=== PATIENT | male | born 1985 | race Caucasian/White ===

== ENCOUNTER 2018-07-31 09:25 | Emergency (ER) | payer BC ==
[2018-07-31 09:34] VITALS: RESP 18
[2018-07-31] MEDS ORDERED: ACETAMINOPHEN TAB 500 MG TAB PO STA (10:12)
--- NOTE | 2018-07-31 11:00 | US ---
EXAMINATION TYPE: US venous doppler duplex LE LT DATE OF EXAM: 07/31/2018 10:12 AM COMPARISON: NONE CLINICAL HISTORY: Pain. Left knee pain x couple days SIDE PERFORMED: Left TECHNIQUE: The lower extremity deep venous system is examined utilizing real time linear array sonog britany with graded compression, doppler sonography and color-flow sonography. VESSELS IMAGED: External Iliac Vein (EIV) Common Femoral Vein Deep Femoral Vein Greater Saphenous Vein * Femoral Vein Popliteal Vein Small Saphenous Vein * Proximal Calf Veins (* superficial vessels) Left Leg: Appears negative for DVT No popliteal fossa lesion is seen. IMPRESSION: THIS EXAMINATION IS NEGATIVE FOR DVT WITHIN THE LEFT LEG.
--- NOTE | 2018-07-31 11:49 | ED ---
General Adult HPI - General Chief complaint: Extremity Problem,Nontraumatic Stated complaint: Leg pain Time Seen by Provider: 07/31/18 09:52 Source: patient, RN notes reviewed Mode of arrival: ambulatory Limitations: no limitations - History of Present Illness Initial comments: 33-year-old male presents to the emergency department for a chief complaint of posterior left knee pain times one week. Patient states it is somewhat painful to walk. Patient denies any anterior knee pain. 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 Patient denies fevers or chills. Patient denies any swelling of the knee. Patient states there is a bruise behind the left knee with a small "lump." Patient was seen in urgent care and they sent him here for ultrasound of the lower extremity. Patient has no other complaints at this time including shortness of breath, chest pain, abdominal pain, nausea or vomiting, headache, or visual changes. - Related Data Home Medications Medication Instructions Recorded Confirmed Aspirin/Sod Bicarb/Citric Acid 1 tab PO Q6H PRN 07/31/18 07/31/18 [Michaela-[place] Original Tab Eff] Guaifen/Phenyleph/Acetaminophn 1 tab PO BID PRN 07/31/18 07/31/18 [Tylenol Sinus Severe Caplet] Ibuprofen [Motrin Ib] 200 mg PO Q6HR PRN 07/31/18 07/31/18 Allergies Allergy/AdvReac Type Severity Reaction Status Date / Time No Known Allergies Allergy Verified 07/31/18 10:21 Review of Systems ROS Statement: Those systems with pertinent positive or pertinent negative responses have been documented in the HPI. ROS Other: All systems not noted in ROS Statement are negative. Past Medical History Past Medical History: Hypertension History of Any Multi-Drug Resistant Organisms: None Reported Past Surgical History: Hernia Repair Past Psychological History: No Psychological Hx Reported Smoking Status: Current every day smoker Past Alcohol Use History: Occasional Past Drug Use History: Marijuana General Exam Limitations: no limitations General appearance: alert, in no apparent distress Head exam: Present: atraumatic, normocephalic, normal inspection Eye exam: Present: normal appearance, PERRL, EOMI. Absent: scleral icterus, conjunctival injection, periorbital swelling ENT exam: Present: normal exam, mucous membranes moist Neck exam: Present: normal inspection, full ROM. Absent: tenderness, meningismus, lymphadenopathy Respiratory exam: Present: normal lung sounds bilaterally. Absent: respiratory distress, wheezes, rales, rhonchi, stridor Cardiovascular Exam: Present: regular rate, normal rhythm, normal heart sounds. Absent: systolic murmur, diastolic murmur, rubs, gallop, clicks Extremities exam: Present: full ROM (Full range motion of the left knee and ankle), tenderness (Tenderness posterior to the left knee were patient has small 1 cm well-circumscribed induration noted), normal capillary refill (Capillary refill less than 2 seconds and DP pulse 2+ in the left lower extremity), other (Patient is a 1 cm area of well-circumscribed induration noted to the posterior left knee with small 2 cm x 2 cm area of bruising overlying this). Absent: joint swelling (No erythema or edema noted to the left knee), calf tenderness (No tenderness noted to the left calf, negative Homans sign) Neurological exam: Present: alert, oriented X3, CN II-XII intact Psychiatric exam: Present: normal affect, normal mood Course Vital Signs 07/31/18 07/31/18 09:32 12:28 Temperature 98.4 F 98.7 F Pulse Rate 74 60 Respiratory 18 18 Rate Blood Pressure 144/80 117/80 O2 Sat by Pulse 99 97 Oximetry Medical Decision Making - Medical Decision Making 33-year-old male presents to the emergency department for a chief complaint of left posterior knee pain. There is a 1 cm area of well-circumscribed induration noted with small 2 cm x 2 cm area of bruising. Full range motion of the left knee, no erythema or edema. She has pain with walking. Neurovascular intact in the left lower extremity. Ultrasound negative for DVT or other abnormality. Patient does not feel that he can work with the left knee as he does maintenance is painful to walk. Therefore he will follow up with orthopedics before returning to work as he does not have a primary care provider. Patient will be given crutches. Patient will return here if he has any worsening symptoms. Disposition Clinical Impression: Knee pain, left Disposition: HOME SELF-CARE Condition: Good Instructions (If sedation given, give patient instructions): Knee Pain (ED) Additional Instructions: Please ice the area. Please take Motrin and Tylenol for pain. Please follow-up with primary care and orthopedics in 1-2 days. Use crutches. Please return here to the emergency department if you have any worsening symptoms. Is patient prescribed a controlled substance at d/c from ED?: No Referrals: Miguel Zamarripa DO [Medical Doctor] - 1-2 days Lidia Arango MD [STAFF PHYSICIAN] - 1-2 days Time of Disposition: 11:46
[2018-07-31 12:30] VITALS: BP 117/80; PULSE 60; TEMP 98.7
== END 2018-07-31 12:30 | disposition home or self-care (01) ==
LOC: EC 09:25
DX: S80.02XA Contusion of left knee, initial encounter (principal); F17.200 Nicotine dependence, unspecified, uncomplicated; X58.XXXA Exposure to other specified factors, initial encounter
CPT/HCPCS: 99283

== ENCOUNTER 2019-06-23 00:16 | Emergency (ER) | payer BC ==
--- NOTE | 2019-06-23 01:03 | XR ---
EXAMINATION TYPE: XR knee complete RT DATE OF EXAM: 06/23/2019 COMPARISON: NONE HISTORY: Knee pain TECHNIQUE: 3 views FINDINGS: I see no fracture nor dislocation. Joint spaces are normal. There is no sign of joint effus ion. IMPRESSION: Negative right knee exam.
--- NOTE | 2019-06-23 01:19 | ED ---
Lower Extremity Injury HPI - General Chief Complaint: Extremity Injury, Lower Stated Complaint: Rt Knee Pain Time Seen by Provider: 06/23/19 00:22 Source: patient Mode of arrival: ambulatory Limitations: no limitations - History of Present Illness Initial Comments: Patient is a 33-year-old male presenting to emergency Department with complaints of right knee pain that happened a few hours prior to arrival. Patient states he was sleeping and bed when he rolled over and had pain in his right knee. Patient states he did get up and walk around and felt pain with ambulation. Patient states he did drive to work as he works nights but when he got out of his truck to stepdown he cannot put any weight on it. Patient denies any previous injuries, falls, surgeries to the right knee. He denies recent travel, history of blood clots. He has no other complaints at this time. Upon arrival to the ER his vitals are stable. Patient is requesting a work note. - Related Data Home Medications Medication Instructions Recorded Confirmed Aspirin/Sod Bicarb/Citric Acid 1 tab PO Q6H PRN 07/31/18 07/31/18 [Michaela-[place] Original Tab Eff] Guaifen/Phenyleph/Acetaminophn 1 tab PO BID PRN 07/31/18 07/31/18 [Tylenol Sinus Severe Caplet] Ibuprofen [Motrin Ib] 200 mg PO Q6HR PRN 07/31/18 07/31/18 Allergies Allergy/AdvReac Type Severity Reaction Status Date / Time No Known Allergies Allergy Verified 06/23/19 00:21 Review of Systems ROS Statement: Those systems with pertinent positive or pertinent negative responses have been documented in the HPI. ROS Other: All systems not noted in ROS Statement are negative. Past Medical History Past Medical History: Hypertension History of Any Multi-Drug Resistant Organisms: None Reported Past Surgical History: Hernia Repair Past Psychological History: No Psychological Hx Reported Smoking Status: Current every day smoker Past Alcohol Use History: Occasional Past Drug Use History: Marijuana General Exam - General Exam Comments Initial Comments: GENERAL: Well-appearing, well-nourished and in no acute distress. HEAD: Atraumatic, normocephalic. EYES: Pupils equal round and reactive to light, extraocular movements intact, sclera anicteric, conjunctiva are normal. ENT: TMs normal, nares patent, oropharynx clear without exudates. Moist mucous membranes. NECK: Normal range of motion, supple without lymphadenopathy or JVD. LUNGS: Breath sounds clear to auscultation bilaterally and equal. No wheezes rales or rhonchi. HEART: Regular rate and rhythm without murmurs, rubs or gallops. ABDOMEN: Soft, nontender, normoactive bowel sounds. No guarding, no rebound. No masses appreciated. EXTREMITIES: Mild pain to palpation the posterior aspect of the right knee, there is no swelling, deformity, erythema. Patient does have full range of motion with pain with full flexion. Negative valgus negative varus negative anterior drawer. He is neurovascular intact. NEUROLOGICAL: Normal speech, normal gait. PSYCH: Normal mood, normal affect. SKIN: Warm, Dry, normal turgor, no rashes or lesions noted. Limitations: no limitations Course Vital Signs 06/23/19 06/23/19 00:18 01:23 Temperature 99.0 F 97 F L Pulse Rate 82 78 Respiratory 16 18 Rate Blood Pressure 123/81 122/75 O2 Sat by Pulse 98 97 Oximetry Medical Decision Making - Medical Decision Making She is a 33-year-old male presenting of right knee pain with no obvious injury or fall. Patient's exam is unremarkable except for pain with full knee flexion. He has no risk factors for blood clots. X-ray reveals no acute fracture- dislocations. Discussed with patient this is most likely muscle related or a possible meniscus injury. Patient will be given referral to orthopedic if symptoms persist. He can use ice and Motrin for pain relief. He is stable for discharge. He is in agreement with this plan of care. Work note was given. Disposition Clinical Impression: Right knee pain Disposition: HOME SELF-CARE Condition: Stable Instructions (If sedation given, give patient instructions): Knee Pain (ED) Additional Instructions: Please return to the Emergency Department if symptoms worsen or any other concerns. Use ice and Motrin for pain relief. Follow-up with orthopedic if symptoms persist. Is patient prescribed a controlled substance at d/c from ED?: No Referrals: Yifan Patrick MD [Primary Care Provider] - 1-2 days Jaun Guidry MD [STAFF PHYSICIAN] - 1-2 days
[2019-06-23 01:25] VITALS: BP 122/75; PULSE 78; RESP 18; TEMP 97
== END 2019-06-23 01:25 | disposition home or self-care (01) ==
LOC: EC 00:16
DX: M25.561 Pain in right knee (principal); F17.200 Nicotine dependence, unspecified, uncomplicated; X50.1XXA Overexertion from prolonged static or awkward postures, initial encounter; Y93.84 Activity, sleeping
CPT/HCPCS: 99283

== ENCOUNTER → 2020-12-18 | Outpatient (CLI) | payer OTHER ==
--- NOTE | 2020-12-18 14:08 | XR ---
EXAMINATION TYPE: XR hand complete RT DATE OF EXAM: 12/18/2020 COMPARISON: NONE HISTORY: Pain TECHNIQUE: Three views are submitted. FINDINGS: The osseous structures are intact. The joint spaces are preserved and there is no acute fracture or dislocation. IMPRESSION: 1. No definite acute fracture or dislocation if symptoms persist, follow-up study in 7 to 10 days wo uld be suggested
== END | disposition home or self-care (01) ==
LOC: RADXRMAIN 10:17
PROVIDERS: ATTEND Emergency Medicine
DX: M79.641 Pain in right hand (principal)

== ENCOUNTER 2024-08-18 20:06 | Emergency (ER) | payer BC ==
[2024-08-18 20:39] VITALS: TEMP 98
[2024-08-18 22:55] LABS: Basophils # (A) 0.19 10*3/uL (0.00-0.10); Basophils % (A) 2.3 %; Eosinophils # (A) 0.24 10*3/uL (0.04-0.35); Eosinophils % (A) 2.9 %; Lymphocytes # (A) 2.29 10*3/uL (0.90-5.00); MCH 33.4 pg (27.0-32.0); MCHC 35.4 g/dL (32.0-37.0); MCV 94.3 fL (80.0-97.0); Mean Platelet Volume 10.2 fL (9.5-12.2); Monocytes # (A) 0.69 10*3/uL (0.20-1.00); Monocytes % (A) 8.4 %; Neutrophils # (A) 4.73 10*3/uL (1.80-7.70); Platelet Count 235 10*3/uL (140-440); RBC 5.09 10*6/uL (4.40-5.60); RDW 11.9 % (11.5-14.5); WBC 8.17 10*3/uL (4.50-10.00)
[2024-08-18 23:04] LABS: Partial Thromboplastin Time 24.4 sec (22.0-30.0); Prothrombin Time 10.9 sec (10.0-12.5)
--- NOTE | 2024-08-18 23:05 | ED ---
General Adult HPI - General Chief complaint: Alcohol Stated complaint: Vomiting Blood Time Seen by Provider: 08/18/24 21:55 Source: patient Mode of arrival: ambulatory Limitations: no limitations - History of Present Illness Initial comments: This patient is a 39-year-old man who presents to have evaluation of coughing up blood. The patient states he had smoked some marijuana tonight and then he had coughed and clear his throat and when he did there was sputum with blood in it. He has had this happen going back months to years but there was more blood today so his girlfriend persuaded him to come here for evaluation. Patient denies having signs or symptoms of anemia. He is not having orthostatic symptoms, no lightheadedness, palpitations, syncope. No chest pain, dyspnea, diaphoresis. No hematemesis or dark tarry stools. -: hour(s) Severity scale (1-10): 0 Consistency: intermittent Improves with: none Worsens with: none Treatments Prior to Arrival: none - Related Data Home Medications Medication Instructions Recorded Confirmed Aspirin/Sod Bicarb/Citric Acid 1 tab PO Q6H PRN 07/31/18 07/31/18 [Michaela-[place] Original Tab Eff] Guaifen/Phenyleph/Acetaminophn 1 tab PO BID PRN 07/31/18 07/31/18 [Tylenol Sinus Severe Caplet] Ibuprofen [Motrin Ib] 200 mg PO Q6HR PRN 07/31/18 07/31/18 Allergies Allergy/AdvReac Type Severity Reaction Status Date / Time No Known Allergies Allergy Verified 08/18/24 20:39 Review of Systems ROS Statement: Those systems with pertinent positive or pertinent negative responses have been documented in the HPI. ROS Other: All systems not noted in ROS Statement are negative. Constitutional: Denies: fever, chills, weakness ENT: Denies: throat pain, congestion Respiratory: Reports: as per HPI, cough, hemoptysis. Denies: dyspnea, wheezes Cardiovascular: Denies: chest pain, palpitations, edema Gastrointestinal: Denies: abdominal pain, vomiting, diarrhea, hematemesis, melena, hematochezia Genitourinary: Denies: dysuria, hematuria Musculoskeletal: Denies: back pain Skin: Denies: rash Neurological: Denies: headache, weakness Hematological/Lymphatic: Denies: easy bleeding Past Medical History Past Medical History: Hypertension History of Any Multi-Drug Resistant Organisms: None Reported Past Surgical History: Hernia Repair Past Psychological History: No Psychological Hx Reported Past Alcohol Use History: Occasional Past Drug Use History: Marijuana General Exam Limitations: no limitations General appearance: alert, in no apparent distress Head exam: Present: atraumatic, normocephalic Eye exam: Present: normal appearance. Absent: scleral icterus, conjunctival injection ENT exam: Present: normal oropharynx Neck exam: Present: normal inspection, full ROM Respiratory exam: Present: normal lung sounds bilaterally. Absent: respiratory distress, wheezes, rales, rhonchi, stridor, accessory muscle use Cardiovascular Exam: Present: regular rate, normal rhythm, normal heart sounds. Absent: systolic murmur, diastolic murmur, rubs, gallop GI/Abdominal exam: Present: soft. Absent: distended, tenderness, guarding, rebound, rigid, mass, hernia Extremities exam: Present: normal inspection, normal capillary refill. Absent: pedal edema, calf tenderness Back exam: Present: normal inspection. Absent: CVA tenderness (R), CVA tenderness (L) Neurological exam: Present: alert Skin exam: Present: warm, dry, intact, normal color. Absent: rash Course Vital Signs 08/18/24 08/18/24 08/19/24 20:21 22:57 01:08 Temperature 98.0 F Pulse Rate 111 H 87 68 Respiratory 17 18 18 Rate Blood Pressure 142/76 91/60 117/66 O2 Sat by Pulse 96 98 98 Oximetry Medical Decision Making - Medical Decision Making The patient had chest x-ray that I interpreted as negative for acute infiltrate, pneumothorax, congestive heart failure Was pt. sent in by a medical professional or institution (, PA, SIZE PAINTER, urgent care, hospital, or fci...) When possible be specific @ -[No] Did you speak to anyone other than the patient for history (EMS, parent, family, police, friend...)? What history was obtained from this source @ -[No] Did you review nursing and triage notes (agree or disagree)? Why? @ -[I reviewed and agree with nursing and triage notes] Were old charts reviewed (outside hosp., previous admission, EMS record, old EKG, old radiological studies, urgent care reports/EKG's, fci records)? Report findings @ -[No old charts were reviewed] Differential Diagnosis (chest pain, altered mental status, abdominal pain women, abdominal pain men, vaginal bleeding, weakness, fever, dyspnea, syncope, headache, dizziness, GI bleed, back pain, seizure, CVA, palpatations, mental health, musculoskeletal)? @ -[Differential : Bronchitis, asthma, COPD, pulmonary embolism, pneumonia, pneumothorax, pulmonary effusion, pulmonary contusion, upper respiratory infection, epistaxis, oral bleeding this is not meant to be an all-inclusive list. EKG interpreted by me (3pts min.). @ -[As above] X-rays interpreted by me (1pt min.). @ -[I interpreted as above CT interpreted by me (1pt min.). @ -[None done] U/S interpreted by me (1pt. min.). @ -[None done] What testing was considered but not performed or refused? (CT, X-rays, U/S, labs)? Why? @ -[None] What meds were considered but not given or refused? Why? @ -[None] Did you discuss the management of the patient with other professionals (professionals i.e. , PA, SIZE PAINTER, lab, RT, psych nurse, social work coordinator, gallery director, teacher, air defense artillery officer, briefcase sewer)? Give summary @ -[No] Was smoking cessation discussed for >3mins.? @ -[No] Was critical care preformed (if so, how long)? @ -[No] Were there social determinants of health that impacted care today? How? (Homelessness, low income, unemployed, alcoholism, drug addiction, transportation, low edu. Level, literacy, decrease access to med. care, long term, rehab)? @ -[No] Was there de-escalation of care discussed even if they declined (Discuss DNR or withdrawal of care, Hospice)? DNR status @ -[No] What co-morbidities impacted this encounter? (DM, HTN, Smoking, COPD, CAD, Cancer, CVA, ARF, Chemo, Hep., AIDS, mental health diagnosis, sleep apnea, morbid obesity)? @ -[None] Was patient admitted / discharged? Hospital course, mention meds given and route, prescriptions, significant lab abnormalities, going to OR and other pertinent info. @ -[h this patient is 39-year-old man with small amount of hemoptysis. The history and physical exam most consistent with bleeding due to bronchitis. Discussed appropriate further care and follow-up as well as return parameters. Patient also found to have elevated transaminases and we discussed having these rechecked, as well as return parameters related Undiagnosed new problem with uncertain prognosis? @ -[No] Drug Therapy requiring intensive monitoring for toxicity (Heparin, Nitro, Insulin, Cardizem)? @ -[No] Were any procedures done? @ -[No] Diagnosis/symptom? @ -[Acute hemoptysis Elevated transaminase level Acute, or Chronic, or Acute on Chronic? @ -[Acute Uncomplicated (without systemic symptoms) or Complicated (systemic symptoms)? @ -[Uncomplicated Side effects of treatment? @ -[No] Exacerbation, Progression, or Severe Exacerbation? @ -[No] Poses a threat to life or bodily function? How? (Chest pain, [place], MA, pneumonia, PE, COPD, DKA, ARF, appy, cholecystitis, CVA, Diverticulitis, Homicidal, Suicidal, threat to staff... and all critical care pts) @ -[Low likelihood but requires follow-up All treatments are based on ideal body weight as in ED triage - Lab Data Result diagrams: 08/18/24 22:49 08/18/24 22:49 Lab Results 08/18/24 08/18/24 08/18/24 Range/Units 22:49 22:49 22:49 WBC 8.17 (4.50-10.00) 10*3/uL RBC 5.09 (4.40-5.60) 10*6/uL Hgb 17.0 (13.0-17.0) g/dL Hct 48.0 (39.6-50.0) % MCV 94.3 (80.0-97.0) fL MCH 33.4 H (27.0-32.0) pg MCHC 35.4 (32.0-37.0) g/dL Plt Count 235 (140-440) 10*3/uL MPV 10.2 (9.5-12.2) fL Immature Gran % (Auto) 0.4 % Neutrophils % 58.0 % Lymphocytes % 28.0 % Monocytes % 8.4 % Eosinophils % 2.9 % Basophils % 2.3 % Immature Gran # 0.03 (0.00-0.04) 10*3/uL Neutrophils # 4.73 (1.80-7.70) 10*3/uL Lymphocytes # 2.29 (0.90-5.00) 10*3/uL Monocytes # 0.69 (0.20-1.00) 10*3/uL Eosinophils # 0.24 (0.04-0.35) 10*3/uL Basophils # 0.19 H (0.00-0.10) 10*3/uL PT 10.9 (10.0-12.5) sec INR 1.0 (<1.2) APTT 24.4 (22.0-30.0) sec Sodium 145 (137-145) mmol/L Potassium 4.1 (3.5-5.1) mmol/L Chloride 100 (98-107) mmol/L Carbon Dioxide 29 (22-30) mmol/L Anion Gap 16 mmol/L BUN 7 L (9-20) mg/dL Creatinine 0.75 (0.66-1.25) mg/dL Est GFR (CKD-EPI)AfAm >90 (>60 ml/min/1.73 sqM) Est GFR (CKD-EPI)NonAf >90 (>60 ml/min/1.73 sqM) Glucose 89 (74-99) mg/dL Calcium 9.9 (8.4-10.2) mg/dL Total Bilirubin 0.5 (0.2-1.3) mg/dL AST 311 H (17-59) U/L ALT 222 H (4-49) U/L Alkaline Phosphatase 90 (38-126) U/L Total Protein 8.9 H (6.3-8.2) g/dL Albumin 5.3 H (3.5-5.0) g/dL Disposition Clinical Impression: Hemoptysis, Transaminitis Disposition: HOME SELF-CARE Condition: Good Instructions (If sedation given, give patient instructions): Coughing Up Blood (Hemoptysis) (ED) Additional Instructions: As we discussed, your liver enzymes are elevated. In light of this it is suggested that you decrease alcohol consumption. Also suggested to have these tests repeated in approximately 3 to 5 days to ensure that the levels are not rising dramatically. Is patient prescribed a controlled substance at d/c from ED?: No Referrals: Yifan Patrick MD [Primary Care Provider] - 1-2 days
[2024-08-18 23:11] VITALS: RESP 18
[2024-08-18 23:16] LABS: ALT 222 U/L (4-49); AST 311 U/L (17-59); African American GFR (CKD) >90 (>60 ml/min/1.73 sqM); Albumin 5.3 g/dL (3.5-5.0); Alkaline Phosphatase 90 U/L (38-126); Anion Gap 16 mmol/L; Blood Urea Nitrogen 7 mg/dL (9-20); Calcium 9.9 mg/dL (8.4-10.2); Carbon Dioxide 29 mmol/L (22-30); Chloride 100 mmol/L (98-107); Glucose 89 mg/dL (74-99); Non-African American GFR(CKD) >90 (>60 ml/min/1.73 sqM); Potassium 4.1 mmol/L (3.5-5.1); Sodium 145 mmol/L (137-145); Total Bilirubin 0.5 mg/dL (0.2-1.3); Total Protein 8.9 g/dL (6.3-8.2)
[2024-08-18] MEDS: SODIUM CHLORIDE 0.9% 500 ML 500 ML IV STA (23:25)
--- NOTE | 2024-08-19 00:31 | XR ---
EXAM: XR Chest, 2 Views CLINICAL HISTORY: ITS.REASON XR Reason: shortness of breath TECHNIQUE: Frontal and lateral views of the chest. COMPARISON: No relevant prior studies available. FINDINGS: Lungs: Unremarkable. No consolidation. Pleural space: Unremarkable. No pneumothorax. Heart: Unremarkable. No cardiomegaly. Mediastinum: Unremarkable. Bones/joints: Unremarkable. IMPRESSION: Normal chest x-rays.
[2024-08-19 01:11] VITALS: BP 117/66; PULSE 68
== END 2024-08-19 01:14 | disposition home or self-care (01) ==
LOC: EC 20:06
DX: K92.0 Hematemesis (principal); R74.01 Elevation of levels of liver transaminase levels; F17.200 Nicotine dependence, unspecified, uncomplicated
CPT/HCPCS: 36415; 71046; 80053; 85025; 85610; 85730; 96360; 99284